=== PATIENT | male | born 1995 | race Caucasian/White ===

== ENCOUNTER 2022-04-10 19:46 | Emergency (ER) | payer OTHER ==
[~2022-04-10] VITALS: Ht 160 cm; Wt 83.9 kg
[2022-04-10 20:43] VITALS: BP 156/72
--- NOTE | 2022-04-10 21:44 | NUR ---
Patient discharged to home in stable condition. Written and verbal after care instructions given. Patient verbalizes understanding of instruction.
== END 2022-04-10 21:45 | disposition home or self-care (01) ==
LOC: ER 19:50
DX: Z00.00 Encounter for general adult medical examination without abnormal findings (principal)

== ENCOUNTER 2024-02-14 18:00 | Emergency (ER) | payer OTHER ==
[~2024-02-14] VITALS: Ht 157.5 cm; Wt 78.9 kg
[2024-02-14] MEDS ORDERED: AMOX-430 PO (18:11)
[2024-02-14] MEDS ORDERED: TDAP [DIPH/PERTUSSIS/TET] 0.5 ML VIAL IM ONE (18:44)
[2024-02-14] MEDS: TDAP [DIPH/PERTUSSIS/TET] 0.5 ML VIAL IM ONE (18:50)
[2024-02-14 18:51] VITALS: BP 118/75; TEMP 97.9; O2SAT 99
== END 2024-02-14 18:51 | disposition home or self-care (01) ==
LOC: ER 18:13
DX: S91.032A Puncture wound without foreign body, left ankle, initial encounter (principal); Z79.899 Other long term (current) drug therapy; W54.0XXA Bitten by dog, initial encounter; Y93.89 Activity, other specified; Y92.89 Other specified places as the place of occurrence of the external cause; Y99.8 Other external cause status
CPT/HCPCS: 99283; 90471; 90715; A6403